=== PATIENT | male | born 1995 | race African-American/Black ===

== ENCOUNTER 2016-09-23 08:00 | Emergency (ER) | payer MEDICAID ==
[~2016-09-23] VITALS: Ht 180.3 cm; Wt 72.5 kg
[2016-09-23 08:04] VITALS: BP 138/78; PULSE 72; RESP 20; TEMP 97.5; O2SAT 100
--- NOTE | 2016-09-23 08:58 | PD ---
HPI Chief Complaint: Flank/Kidney Pain Time Seen by Provider: 08:51 Travel History International Travel<30 days: No Contact w/Intl Traveler<30days: No Traveled to known affect area: No History of Present Illness HPI This is a 20-year-old male who presents to the emergency department with pain in his bilateral flanks, intermittent for one year, worse this morning bringing him to tears, feeling like a throbbing in his kidney area, with no associated nausea, vomiting, decreased urination or blood in his urine. He denies any fevers or chills. PFSH Past Medical History Medical History: Denies Significant Hx Past Surgical History Surgical History: No Previous Surgery Social History Alcohol Use: Yes (DAILY) Tobacco Use: Yes (1 PPD) Substance Use: Yes (MARIJUANA) Allergies-Medications (Allergen,Severity, Reaction): Coded Allergies: No Known Allergies (Unverified , 09/23/16) Reported Meds & Prescriptions Reported Meds & Active Scripts Active No Active Prescriptions or Reported Medications Review of Systems Except as stated in HPI: all other systems reviewed are Neg Physical Exam Narrative GENERAL:Well appearing, no acute distress SKIN: Focused skin assessment warm and dry. HEAD: Atraumatic. Normocephalic. EYES: Pupils equal and round. No injection or drainage. ENT: Moist mucous membranes NECK: Trachea midline. CARDIOVASCULAR: Regular rate and rhythm. No murmur appreciated. RESPIRATORY: Clear to auscultation. Breath sounds equal bilaterally. GASTROINTESTINAL: Abdomen soft, non-tender, nondistended. : Bilateral CVA tenderness. MUSCULOSKELETAL: No obvious deformities. NEUROLOGICAL: Awake and alert. No obvious cranial nerve deficits. Moving all extremities. PSYCHIATRIC: Appropriate mood and affect; insight and judgment normal. Data Data Last Documented VS Vital Signs Date Time Temp Pulse Resp B/P Pulse Ox O2 Delivery O2 Flow Rate FiO2 09/23/16 08:04 97.5 72 20 138/78 100 Orders Urinalysis - C+S If Indicated (09/23/16 08:34) Complete Blood Count With Diff (09/23/16 08:55) Basic Metabolic Panel (Bmp) (09/23/16 08:55) Labs Laboratory Tests Test 09/23/16 09/23/16 09/23/16 08:35 08:55 10:02 Urine Color YELLOW Urine Turbidity CLEAR Urine pH 6.5 Urine Specific [place] 1.017 Urine Protein NEG mg/dL Urine Glucose (UA) NEG mg/dL Urine Ketones NEG mg/dL Urine Occult Blood NEG Urine Nitrite NEG Urine Bilirubin NEG Urine Urobilinogen LESS THAN 2.0 MG/DL Urine Leukocyte Esterase NEG Urine RBC LESS THAN 1 /hpf Urine WBC 1 /hpf Urine Squamous Epithelial <1 /hpf Cells Urine Mucus FEW /lpf Microscopic Urinalysis Comment CULT NOT INDICATED White Blood Count 6.4 TH/MM3 Red Blood Count 4.20 MIL/MM3 Hemoglobin 14.3 GM/DL Hematocrit 42.2 % Mean Corpuscular Volume 100.5 FL Mean Corpuscular Hemoglobin 34.1 PG Mean Corpuscular Hemoglobin 33.9 % Concent Red Cell Distribution Width 14.9 % Platelet Count 179 TH/MM3 Mean Platelet Volume 10.6 FL Neutrophils (%) (Auto) 46.0 % Lymphocytes (%) (Auto) 41.2 % Monocytes (%) (Auto) 10.1 % Eosinophils (%) (Auto) 2.1 % Basophils (%) (Auto) 0.6 % Neutrophils # (Auto) 2.9 TH/MM3 Lymphocytes # (Auto) 2.6 TH/MM3 Monocytes # (Auto) 0.6 TH/MM3 Eosinophils # (Auto) 0.1 TH/MM3 Basophils # (Auto) 0.0 TH/MM3 CBC Comment AUTO DIFF Differential Comment AUTO DIFF CONFIRMED Platelet Estimate NORMAL Platelet Morphology Comment CLUMPED Sodium Level 141 MEQ/L Potassium Level 4.3 MEQ/L Chloride Level 107 MEQ/L Carbon Dioxide Level 29.1 MEQ/L Anion Gap 5 MEQ/L Blood Urea Nitrogen 8 MG/DL Creatinine 0.88 MG/DL Estimat Glomerular Filtration 134 ML/MIN Rate Random Glucose 86 MG/DL Calcium Level 8.8 MG/DL [facility] Medical Decision Making Medical Screen Exam Complete: Yes Emergency Medical Condition: Yes Interpretation(s) Afebrile, no tachycardia Labs reassuring Urinalysis normal Differential Diagnosis Nephrolithiasis, pyelonephritis, renal failure, musculoskeletal pain Narrative Course This is a 20-year-old male who presents to the emergency department with an acute exacerbation of bilateral flank pain that he was concerned with his kidneys. Labs were obtained and urinalysis were obtained both of which were reassuring. Patient appears very well and this is a subacute problem. Patient will be discharged home to follow up with a primary care physician. Diagnosis Primary Impression: Musculoskeletal pain Patient Instructions: General Instructions Additional Instructions: If you develop severe or worsening abdominal pain, fever>100.4, persistent vomiting or inability to eat or drink return to the emergency department immediately. Follow up with your primary care physician in 1-2 days for a check-up. Med/Other Pt SpecificInfo: No Change to Meds Scripts No Active Prescriptions or Reported Meds Disposition: 01 DISCHARGE HOME Condition: Stable Gill Woods MD Sep 23, 2016 08:58
[2016-09-23 09:02] LABS: BLOOD, URINE NEG (NEG); COMMENT (UR) CULT NOT INDICATED; CULTURE IF INDICATED CULT NOT INDICATED; GLUCOSE,URINE NEG (NEG); KETONE, URINE NEG (NEG); MUCUS URINE FEW /lpf (OCC); NITRITE,URINE NEG (NEG); PH, URINE 6.5 (5.0-8.5); SQUAMOUS EPITHELIAL CELL URINE <1 /hpf (0-5); URINE COLOR YELLOW (YELLW/STRAW)
[2016-09-23 09:18] LABS: AUTOMATED NEUTROPHIL # 2.9 TH/MM3 (1.8-7.7); BASOPHIL % 0.6 % (0.0-2.0); EOSINOPHIL # 0.1 TH/MM3 (0-0.4); EOSINOPHIL % 2.1 % (0.0-4.0); HEMATOCRIT 42.2 % (39.0-51.0); LYMPH % 41.2 % (9.0-44.0); LYMPHOCYTE # 2.6 TH/MM3 (1.0-4.8); MEAN CELL VOLUME 100.5 FL (80.0-100.0); MEAN CORPUSCULAR HEMOGLOBIN 34.1 PG (27.0-34.0); MEAN CORPUSCULAR HGB CONC 33.9 % (32.0-36.0); MONO % 10.1 % (0.0-8.0); PLATELET COUNT 179 TH/MM3 (150-450); RED CELL DISTRIBUTION WIDTH 14.9 % (11.6-17.2); WHITE BLOOD COUNT 6.4 TH/MM3 (4.0-11.0)
[2016-09-23 09:32] LABS: HEMO FLAGS AUTO DIFF
[2016-09-23 09:47] LABS: PLATELET ESTIMATE SMEAR NORMAL (NORMAL); PLATELET MORPHOLOGY CLUMPED (NORMAL); SCAN/DIFF AUTO DIFF CONFIRMED
[2016-09-23 10:36] LABS: BICARBONATE 29.1 MEQ/L (21.0-32.0); POTASSIUM 4.3 MEQ/L (3.5-5.1)
== END 2016-09-23 10:58 | disposition home or self-care (01) ==
LOC: NEPC 08:00
DX: M79.1 Myalgia (principal); F17.200 Nicotine dependence, unspecified, uncomplicated; F12.90 Cannabis use, unspecified, uncomplicated
CPT/HCPCS: 80048; 81001; 85025; 99283

== ENCOUNTER 2017-01-24 19:43 | Emergency (ER) | payer SELFPAY ==
[~2017-01-24] VITALS: Ht 180.3 cm; Wt 75.0 kg
[2017-01-24 19:45] VITALS: BP 128/70; PULSE 68; RESP 18; TEMP 98.5; O2SAT 98
--- NOTE | 2017-01-24 20:05 | PD ---
Physical Exam Time Seen by Provider: 20:05 Narrative 21 y/o male here for evaluation of a Right thigh laceration. Vital signs reviewed. Seen at triage desk. Awaiting bed placement. Data Data Last Documented VS Vital Signs Date Time Temp Pulse Resp B/P Pulse Ox O2 Delivery O2 Flow Rate FiO2 01/24/17 19:45 98.5 68 18 128/70 98 Orders Lidocai-Epi 1%-1:100,000 Inj (Xylocaine- (01/24/17 21:15) Tetanus/Diphtheria Tox Adult (Tetanus/Di (01/24/17 21:15) MDM Medical Record Reviewed: Yes Supervised Visit with SALONI: No Scripts No Active Prescriptions or Reported Meds Edy Collins Jan 24, 2017 20:05
--- NOTE | 2017-01-24 21:12 | PD ---
HPI Chief Complaint: Laceration/Skin Injury Time Seen by Provider: 21:00 Travel History International Travel<30 days: No Contact w/Intl Traveler<30days: No Traveled to known affect area: No History of Present Illness HPI 21 y/o male here for evaluation of R thigh laceration. Prior to arrival the patient slipped on some wet stairs because it was raining. His pocket knife punctured his right thigh. He now has pain, burning, worse with palpation. Denies numbness, tingling, weakness. Last tetanus vaccination unknown. No other complaints. [facility] Past Medical History Medical History: Denies Significant Hx Tetanus Vaccination: > 5 Years Past Surgical History Surgical History: No Previous Surgery Social History Alcohol Use: Yes (weekly) Tobacco Use: Yes (1 PPD) Substance Use: Yes (MARIJUANA) Allergies-Medications (Allergen,Severity, Reaction): Coded Allergies: amphetamine (Verified Allergy, Unknown, 01/24/17) dextroamphetamine (Verified Allergy, Unknown, 01/24/17) methylphenidate (Verified Allergy, Unknown, 01/24/17) Reported Meds & Prescriptions Reported Meds & Active Scripts Active No Active Prescriptions or Reported Medications Review of Systems Except as stated in HPI: all other systems reviewed are Neg Physical Exam Narrative GENERAL: Well-nourished male in no acute distress SKIN: Warm and dry. 1 cm laceration to the anterior aspect of the right side. There is some subcutaneous tissue visible. There is no muscle visibility. There is no pulsating blood. HEAD: Atraumatic. Normocephalic. EYES: Pupils equal and round. No scleral icterus. No injection or drainage. ENT: No nasal bleeding or discharge. Mucous membranes pink and moist. NECK: Trachea midline. No JVD. CARDIOVASCULAR: Regular rate and rhythm. No murmur appreciated. RESPIRATORY: No accessory muscle use. Clear to auscultation. Breath sounds equal bilaterally. MUSCULOSKELETAL: Skin as noted above no obvious bony disturbance. Distal sensation, pulses are preserved. NEUROLOGICAL: Awake and alert. No obvious cranial nerve deficits. Motor grossly within normal limits. Normal speech. Data Data Last Documented VS Vital Signs Date Time Temp Pulse Resp B/P Pulse Ox O2 Delivery O2 Flow Rate FiO2 01/24/17 19:45 98.5 68 18 128/70 98 Orders Lidocai-Epi 1%-1:100,000 Inj (Xylocaine- (01/24/17 21:15) Tetanus/Diphtheria Tox Adult (Tetanus/Di (01/24/17 21:15) MDM Medical Decision Making Medical Screen Exam Complete: Yes Emergency Medical Condition: Yes Medical Record Reviewed: Yes Differential Diagnosis Laceration, puncture wound, foreign body, muscle laceration Narrative Course The patient presents with a superficial laceration to the right thigh. The laceration was repaired with elizabeth, he verbally consented. Tetanus status updated. Stable for discharge. Procedures Procedure Narrative LACERATION LOCATION: Diet LENGTH: 1 cm NUMBER OF STITCHES/ELIZABETH: Four REPAIR: The area of the laceration was prepped with Betadine and sterilely draped. The laceration was infiltrated with 1% lidocaine. The wound was copiously irrigated and explored without evidence of foreign body, tendon injury or neurovascular injury. The wound was closed using elizabeth. This was a [single layer repair. A sterile dressing was applied. The patient was advised to keep the dressing clean and dry. Patient tolerated the procedure well. Diagnosis Primary Impression: Laceration of right lower extremity Qualified Code: S81.811A - Laceration of right lower extremity, initial encounter Additional Instructions: Wash the wound with soap and water and apply antibiotic cream and clean bandages daily. Return in 10-14 days for staple removal. Med/Other Pt SpecificInfo: Wound Care Scripts No Active Prescriptions or Reported Meds Disposition: 01 DISCHARGE HOME Condition: Stable Edy Collins Jan 24, 2017 21:12
[2017-01-24] MEDS ORDERED: LIDOCAINE 1%/EPINEPHrine 1:100,000 SOLN 20 ML VIAL INFIL ONE (21:15)
[2017-01-24] MEDS ORDERED: TETANUS/DIPHTHERIA TOXOID ADULT 0.5 ML VIAL IM ONE (21:15)
== END 2017-01-24 22:03 | disposition home or self-care (01) ==
LOC: NEPD 19:43
DX: S71.111A Laceration without foreign body, right thigh, initial encounter (principal); F17.200 Nicotine dependence, unspecified, uncomplicated; W26.0XXA Contact with knife, initial encounter; W10.9XXA Fall (on) (from) unspecified stairs and steps, initial encounter; Z23 Encounter for immunization; Z88.8 Allergy status to other drugs, medicaments and biological substances
CPT/HCPCS: 12001; 90471; 90714

== ENCOUNTER 2017-07-22 15:45 | Emergency (ER) | payer SELFPAY ==
[~2017-07-22] VITALS: Ht 180.3 cm; Wt 66.5 kg
[2017-07-22 15:46] VITALS: BP 119/63; PULSE 94; RESP 18; TEMP 98.3; O2SAT 100
[2017-07-22 16:16] LABS: AUTOMATED NEUTROPHIL # 1.9 TH/MM3 (1.8-7.7); BASOPHIL % 0.8 % (0.0-2.0); EOSINOPHIL # 0.1 TH/MM3 (0-0.4); EOSINOPHIL % 1.9 % (0.0-4.0); HEMATOCRIT 46.2 % (39.0-51.0); HEMOGLOBIN 15.8 GM/DL (13.0-17.0); LYMPH % 48.4 % (9.0-44.0); LYMPHOCYTE # 2.3 TH/MM3 (1.0-4.8); MEAN CELL VOLUME 99.2 FL (80.0-100.0); MEAN CORPUSCULAR HEMOGLOBIN 33.9 PG (27.0-34.0); MEAN CORPUSCULAR HGB CONC 34.1 % (32.0-36.0); MEAN PLATELET VOLUME 8.8 FL (7.0-11.0); MONO % 10.5 % (0.0-8.0); MONOCYTE # 0.5 TH/MM3 (0-0.9); NEUT % 38.4 % (16.0-70.0); PLATELET COUNT 261 TH/MM3 (150-450); RED BLOOD COUNT 4.66 MIL/MM3 (4.50-5.90); RED CELL DISTRIBUTION WIDTH 13.9 % (11.6-17.2); WHITE BLOOD COUNT 4.8 TH/MM3 (4.0-11.0)
[2017-07-22 16:30] LABS: BICARBONATE 27.4 MEQ/L (21.0-32.0); CALCIUM 8.9 MG/DL (8.5-10.1); CREATININE 0.96 MG/DL (0.60-1.30)
[2017-07-22 16:37] LABS: INTERNATIONAL NORMALIZED RATIO 1.1 RATIO; PROTHROMBIN TIME - PATIENT 11.4 SEC (9.8-11.6)
--- NOTE | 2017-07-22 16:38 | RADRPT ---
EXAM DATE/TIME: 07/22/2017 16:14 [place] COMPARISON: No previous studies available for comparison. INDICATIONS : Head pain due to fall. RADIATION DOSE: 37.02 CTDIvol (mGy) MEDICAL HISTORY : None SURGICAL HISTORY : None. ENCOUNTER: Initial ACUITY: 1 day PAIN SCALE: 10/10 LOCATION: Bilateral cranial TECHNIQUE: Multiple contiguous axial images were obtained of the head. Using automated exposure control and adj ustment of the mA and/or kV according to patient size, radiation dose was kept as low as reasonably a chievable to obtain optimal diagnostic quality images. DICOM format image data is available electro nically for review and comparison. FINDINGS: CEREBRUM: The ventricles are normal for age. No evidence of midline shift, mass lesion, hemorrhage or acute in farction. No extra-axial fluid collections are seen. POSTERIOR FOSSA: The cerebellum and brainstem are intact. The 4th ventricle is midline. The cerebellopontine angle i s unremarkable. EXTRACRANIAL: The visualized portion of the orbits is intact. SKULL: The calvaria is intact. No evidence of skull fracture. CONCLUSION: Normal examination. Hector Villagomez Jr., MD on July 22, 2017 at 16:34 Board Certified Radiologist. This report was verified electronically.
[2017-07-22] MEDS ORDERED: MECL-62 PO (16:44)
[2017-07-22] MEDS ORDERED: ZOFR4TAB PO (16:44)
[2017-07-22] MEDS ORDERED: IBUP1TAB7 PO (16:44)
[2017-07-22] MEDS ORDERED: ACETAMINOPHEN/HYDROcodone 325 MG/5 MG TAB PO ONE (16:45)
[2017-07-22] MEDS ORDERED: MECLIZINE HCL 25 MG TAB PO ONE (16:45)
[2017-07-22] MEDS ORDERED: ONDANSETRON ODT 4 MG TAB PO ONE (16:45)
--- NOTE | 2017-07-22 16:46 | PD ---
Physical Exam Date Seen by Provider: Jul 22, 2017 Narrative Patient presents for evaluation of a head injury. He had a blow to the head with a loss of consciousness. He is now back to baseline. Data Data Last Documented VS Vital Signs Date Time Temp Pulse Resp B/P (MAP) Pulse Ox O2 Delivery O2 Flow Rate FiO2 07/22/17 15:46 98.3 94 18 119/63 (81) 100 Room Air Orders Orders Ct Brain W/O Iv Contrast(Rout) (07/22/17 ) Complete Blood Count With Diff (07/22/17 15:53) Basic Metabolic Panel (Bmp) (07/22/17 15:53) Coag Profile (07/22/17 15:53) Ondansetron Odt (Zofran Odt) (07/22/17 16:45) Meclizine (Antivert) (07/22/17 16:45) Acetamin-Hydrocod 325-5 Mg ([place] 5-325 (07/22/17 16:45) Labs Laboratory Tests Test 07/22/17 15:58 White Blood Count 4.8 TH/MM3 Red Blood Count 4.66 MIL/MM3 Hemoglobin 15.8 GM/DL Hematocrit 46.2 % Mean Corpuscular Volume 99.2 FL Mean Corpuscular Hemoglobin 33.9 PG Mean Corpuscular Hemoglobin Concent 34.1 % Red Cell Distribution Width 13.9 % Platelet Count 261 TH/MM3 Mean Platelet Volume 8.8 FL Neutrophils (%) (Auto) 38.4 % Lymphocytes (%) (Auto) 48.4 % Monocytes (%) (Auto) 10.5 % Eosinophils (%) (Auto) 1.9 % Basophils (%) (Auto) 0.8 % Neutrophils # (Auto) 1.9 TH/MM3 Lymphocytes # (Auto) 2.3 TH/MM3 Monocytes # (Auto) 0.5 TH/MM3 Eosinophils # (Auto) 0.1 TH/MM3 Basophils # (Auto) 0.0 TH/MM3 CBC Comment DIFF FINAL Differential Comment Prothrombin Time 11.4 SEC Prothromb Time International Ratio 1.1 RATIO Activated Partial Thromboplast Time 27.5 SEC Blood Urea Nitrogen 9 MG/DL Creatinine 0.96 MG/DL Random Glucose 66 MG/DL Calcium Level 8.9 MG/DL Sodium Level 140 MEQ/L Potassium Level 3.6 MEQ/L Chloride Level 108 MEQ/L Carbon Dioxide Level 27.4 MEQ/L Anion Gap 5 MEQ/L Estimat Glomerular Filtration Rate 120 ML/MIN MDM Supervised Visit with SALONI: Yes Narrative Course I, Dr. Soriano, have reviewed the advance practice practitioner's documentation and am in agreement, met with the patient face to face, made the diagnosis, and the medical decision making was done by me. *My assessment and Findings: Awake and alert and fully oriented. Moving all 4 extremities equally. Please see Td Toledo PA-C's note for results of laboratory and radiographic evaluation, ED course, final diagnosis and disposition Scripts Ondansetron (Zofran) 4 Mg Tab 4 MG PO Q6HR Y for NAUSEA OR VOMITING, #12 TAB 0 Refills Prov: Sania Soriano MD 07/22/17 Meclizine (Meclizine) 25 Mg Tab 25 MG PO TID Y for VERTIGO, #15 TAB 0 Refills Prov: Sania Soriano MD 07/22/17 Ibuprofen (Ibuprofen) 800 Mg Tab 800 MG PO Q8H Y for Pain/Inflammation, #30 TAB 0 Refills Prov: Sania Soriano MD 07/22/17 Sania Soriano MD Jul 22, 2017 16:46
--- NOTE | 2017-07-22 16:53 | PD ---
HPI Chief Complaint: Head Injury Time Seen by Provider: 16:11 Travel History International Travel<30 days: No Contact w/Intl Traveler<30days: No Traveled to known affect area: No History of Present Illness HPI 21-year-old -[place] male presents emergency department status post fall on stairs hitting his head with loss of consciousness for estimated 5 minutes. Patient arrives alert and oriented but complaining of headache, dizziness, and nausea. He has not had vomiting. Patient states his headache is about an 8 out of 10. Patient denies visual changes. Labs and CT of the head were ordered in triage. Patient is allergic to amphetamine, dextroamphetamine, and methylphenidate PFSH Past Medical History Medical History: Denies Significant Hx Tetanus Vaccination: < 5 Years Influenza Vaccination: No Past Surgical History Surgical History: No Previous Surgery Social History Alcohol Use: Yes (weekly) Tobacco Use: Yes (1 PPD) Substance Use: Yes (MARIJUANA) Allergies-Medications (Allergen,Severity, Reaction): Coded Allergies: amphetamine (Verified Allergy, Unknown, 07/22/17) dextroamphetamine (Verified Allergy, Unknown, 07/22/17) methylphenidate (Verified Allergy, Unknown, 07/22/17) Reported Meds & Prescriptions Reported Meds & Active Scripts Active Zofran (Ondansetron HCl) 4 Mg Tab 4 Mg PO Q6HR PRN Meclizine (Meclizine HCl) 25 Mg Tab 25 Mg PO TID PRN Ibuprofen 800 Mg Tab 800 Mg PO Q8H PRN Review of Systems Except as stated in HPI: all other systems reviewed are Neg General / Constitutional: No: Fever Eyes: No: Diploplia, Blurred Vision, Photophobia, Drainage, Redness, Foreign Body Sensation, Pain, Tearing, Blind Spots, Visual changes, Blindness HENT: Positive: Headaches, Vertigo, No: Lightheadedness, Sore Throat, Rhinitis , Rhinorrhea, Congestion, Nosebleed, Neck Stiffness, Neck Pain, Dental Difficulties, Earache Cardiovascular: No: Chest Pain or Discomfort Respiratory: No: Shortness of Breath Gastrointestinal: No: Abdominal Pain Genitourinary: No: Dysuria Musculoskeletal: No: Pain Skin: No Rash Neurologic: No: Weakness Psychiatric: No: Depression Endocrine: No: Polydipsia Hematologic/Lymphatic: No: Easy Bruising Physical Exam Narrative GENERAL: Patient appears in no acute distress. SKIN: Warm and dry. Normal color. Normal turgor. No obvious abrasions or lacerations. HEAD: Atraumatic. Normocephalic. Tender in the posterior occiput. No bony deformities noted. EYES: Pupils equal and round. No scleral icterus. No injection or drainage. Mild right going nystagmus. ENT: No nasal bleeding or discharge. Mucous membranes pink and moist. No dental injury. Pharynx is clear. Airways patent. NECK: Trachea midline. No bony tenderness or step-off. Range of motion is full and nontender. CARDIOVASCULAR: Regular rate and rhythm. RESPIRATORY: No accessory muscle use. Clear to auscultation. Breath sounds equal bilaterally. GASTROINTESTINAL: Abdomen soft, non-tender, nondistended. Hepatic and splenic margins not palpable. MUSCULOSKELETAL: Extremities without clubbing, cyanosis, or edema. No obvious deformities. NEUROLOGICAL: Awake and alert. No obvious cranial nerve deficits. Motor grossly within normal limits. Five out of 5 muscle strength in the arms and legs. Normal speech. PSYCHIATRIC: Appropriate mood and affect; insight and judgment normal. Data Data Last Documented VS Vital Signs Date Time Temp Pulse Resp B/P (MAP) Pulse Ox O2 Delivery O2 Flow Rate FiO2 07/22/17 15:46 98.3 94 18 119/63 (81) 100 Room Air Orders Orders Ct Brain W/O Iv Contrast(Rout) (07/22/17 ) Complete Blood Count With Diff (07/22/17 15:53) Basic Metabolic Panel (Bmp) (07/22/17 15:53) Coag Profile (07/22/17 15:53) Ondansetron Odt (Zofran Odt) (07/22/17 16:45) Meclizine (Antivert) (07/22/17 16:45) Acetamin-Hydrocod 325-5 Mg ([place] 5-325 (07/22/17 16:45) Labs Laboratory Tests Test 07/22/17 15:58 White Blood Count 4.8 TH/MM3 Red Blood Count 4.66 MIL/MM3 Hemoglobin 15.8 GM/DL Hematocrit 46.2 % Mean Corpuscular Volume 99.2 FL Mean Corpuscular Hemoglobin 33.9 PG Mean Corpuscular Hemoglobin Concent 34.1 % Red Cell Distribution Width 13.9 % Platelet Count 261 TH/MM3 Mean Platelet Volume 8.8 FL Neutrophils (%) (Auto) 38.4 % Lymphocytes (%) (Auto) 48.4 % Monocytes (%) (Auto) 10.5 % Eosinophils (%) (Auto) 1.9 % Basophils (%) (Auto) 0.8 % Neutrophils # (Auto) 1.9 TH/MM3 Lymphocytes # (Auto) 2.3 TH/MM3 Monocytes # (Auto) 0.5 TH/MM3 Eosinophils # (Auto) 0.1 TH/MM3 Basophils # (Auto) 0.0 TH/MM3 CBC Comment DIFF FINAL Differential Comment Prothrombin Time 11.4 SEC Prothromb Time International Ratio 1.1 RATIO Activated Partial Thromboplast Time 27.5 SEC Blood Urea Nitrogen 9 MG/DL Creatinine 0.96 MG/DL Random Glucose 66 MG/DL Calcium Level 8.9 MG/DL Sodium Level 140 MEQ/L Potassium Level 3.6 MEQ/L Chloride Level 108 MEQ/L Carbon Dioxide Level 27.4 MEQ/L Anion Gap 5 MEQ/L Estimat Glomerular Filtration Rate 120 ML/MIN [facility] Medical Decision Making Medical Screen Exam Complete: Yes Emergency Medical Condition: Yes Differential Diagnosis Fall. Head contusion. Loss of consciousness. Concussion. Skull fracture. Intracranial bleed. Narrative Course Patient is medically stable at time of exam per Labs are unremarkable. CT is unremarkable for acute process per radiologist. Patient is given hydrocodone 5/325 p.o. now. Patient is given meclizine 25 mg p.o. as well as 4 mg Zofran p.o. Patient is felt stable for discharge. Patient is treated with ibuprofen 800 mg 3 times daily with food #30. Patient also given meclizine 25 mg up to 3 times daily #15. Patient also given Zofran 4 mg every 6 hours as needed #12. Patient should rest, push fluids, and avoid heavy physical activity for the next 24 hours. Concussion instructions he is given to the patient. Patient is to follow-up if worsening headache develops. Diagnosis Primary Impression: Contusion of head Qualified Codes: S00.03XA - Contusion of scalp, initial encounter Additional Impression: Concussion Qualified Codes: S06.0X1A - Concussion with loss of consciousness of 30 minutes or less, initial encounter Patient Instructions: Concussion (ED), General Instructions, Head Injury (DC) Additional Instructions: CT is unremarkable for acute process per radiologist. Patient is given hydrocodone 5/325 p.o. now. Patient is given meclizine 25 mg p.o. as well as 4 mg Zofran p.o. Patient is felt stable for discharge. Patient is treated with ibuprofen 800 mg 3 times daily with food #30. Patient also given meclizine 25 mg up to 3 times daily #15. Patient also given Zofran 4 mg every 6 hours as needed #12. Patient should rest, push fluids, and avoid heavy physical activity for the next 24 hours. Concussion instructions he is given to the patient. Patient is to follow-up if worsening headache develops. Med/Other Pt SpecificInfo: Prescription(s) given Scripts Ondansetron (Zofran) 4 Mg Tab 4 MG PO Q6HR Y for NAUSEA OR VOMITING, #12 TAB 0 Refills Prov: Sania Soriano MD 07/22/17 Meclizine (Meclizine) 25 Mg Tab 25 MG PO TID Y for VERTIGO, #15 TAB 0 Refills Prov: Sania Soriano MD 07/22/17 Ibuprofen (Ibuprofen) 800 Mg Tab 800 MG PO Q8H Y for Pain/Inflammation, #30 TAB 0 Refills Prov: Sania Soriano MD 07/22/17 Disposition: 01 DISCHARGE HOME Condition: Stable Parker Toledo Jul 22, 2017 16:53
[2017-07-22 17:03] VITALS: BP 122/70; PULSE 85; RESP 16; O2SAT 100
== END 2017-07-22 17:04 | disposition home or self-care (01) ==
LOC: NEPD 15:45
DX: S00.03XA Contusion of scalp, initial encounter (principal); S06.0X1A Concussion with loss of consciousness of 30 minutes or less, initial encounter; F17.210 Nicotine dependence, cigarettes, uncomplicated; F12.90 Cannabis use, unspecified, uncomplicated; W10.9XXA Fall (on) (from) unspecified stairs and steps, initial encounter
CPT/HCPCS: 70450; 80048; 85025; 85610; 85730